=== PATIENT | female | born 1990 ===

== ENCOUNTER 2021-05-11 09:34 | Outpatient (CLI) | payer OTHER | END 2021-05-11 11:00 | disposition home or self-care (01) | LOC: PRENATAL 09:34 | PROVIDERS: ATTEND Obstetrics & Gynecology Maternal & Fetal Medicine | DX: O35.0XX0 Maternal care for (suspected) central nervous system malformation in fetus, not applicable or unspecified (principal); O34.219 Maternal care for unspecified type scar from previous cesarean delivery; O35.3XX0 Maternal care for (suspected) damage to fetus from viral disease in mother, not applicable or unspecified ==

== ENCOUNTER 2021-07-07 09:34 | Outpatient (CLI) | payer OTHER | END 2021-07-07 10:45 | disposition home or self-care (01) | LOC: PRENATAL 09:34 | PROVIDERS: ATTEND Obstetrics & Gynecology Maternal & Fetal Medicine | DX: O26.849 Uterine size-date discrepancy, unspecified trimester (principal); Z3A.29 29 weeks gestation of pregnancy; O36.5990 Maternal care for other known or suspected poor fetal growth, unspecified trimester, not applicable or unspecified; O34.219 Maternal care for unspecified type scar from previous cesarean delivery ==

== ENCOUNTER 2021-08-04 09:39 | Outpatient (CLI) | payer OTHER | END 2021-08-04 10:55 | disposition home or self-care (01) | LOC: PRENATAL 09:39 | PROVIDERS: ATTEND Obstetrics & Gynecology Maternal & Fetal Medicine | DX: O26.849 Uterine size-date discrepancy, unspecified trimester (principal); O36.5990 Maternal care for other known or suspected poor fetal growth, unspecified trimester, not applicable or unspecified; O34.219 Maternal care for unspecified type scar from previous cesarean delivery; Z3A.33 33 weeks gestation of pregnancy ==

== ENCOUNTER 2021-09-02 08:33 | Outpatient (CLI) | payer OTHER | END 2021-09-02 09:35 | disposition home or self-care (01) | LOC: PRENATAL 08:33 | PROVIDERS: ATTEND Obstetrics & Gynecology Maternal & Fetal Medicine | DX: O26.849 Uterine size-date discrepancy, unspecified trimester (principal); O36.5990 Maternal care for other known or suspected poor fetal growth, unspecified trimester, not applicable or unspecified; O34.219 Maternal care for unspecified type scar from previous cesarean delivery; Z3A.37 37 weeks gestation of pregnancy ==